=== PATIENT | female | born 1970 | race Caucasian/White ===

== ENCOUNTER 2016-09-24 06:24 | Day surgery (SDC) | payer BC ==
[2016-09-22 17:13] LABS: BASOPHILS 0.2 %; BASOPHILS ABSOLUTE 0.02 10/3/uL (0.0-0.16); EOSINOPHILS 2.7 %; EOSINOPHILS ABSOLUTE 0.22 10/3/uL (0.0-0.53); HEMOGLOBIN 14.5 g/dL (12.0-16.0); IMMATURE GRANULOCYTES 0.2 %; IMMATURE GRANULOCYTES ABSOLUTE 0.02 10/3/uL (0.0-0.11); LYMPHOCYTES 27.3 %; MEAN CORPUSCULAR VOLUME 91.1 fL (80-100); MEAN PLATELET VOLUME 8.8 fL (9.2-13.0); MONOCYTES 11.5 %; MONOCYTES ABSOLUTE 0.93 10/3/uL (0.21-1.20); NEUTROPHILS 58.1 %; NEUTROPHILS ABSOLUTE 4.68 10/3/uL (2.02-8.40); PLATELET COUNT 339 10/3/uL (150-400); RBC DISTRIBUTION WIDTH 12.3 % (12.0-16.0); RED CELL COUNT 4.83 10/6/uL (4.0-5.6); WHITE BLOOD CELLS 8.1 10/3/uL (4.5-10.5)
[2016-09-22 17:16] LABS: MANUAL DIFF NO %
[2016-09-22 17:26] LABS: CALCIUM, SERUM 8.3 MG/DL (8.5-10.4); CHLORIDE, SERUM 104 MMOL/L (96-112); CO2 (CARBON DIOXIDE) 27 MMOL/L (24-34); CREATININE 0.75 MG/DL (0.55-1.02); GFR AFRICAN AMERICAN 111 ML/MIN (>=60); GFR NON AFRICAN AMERICAN 96 ML/MIN (>=60); SODIUM, SERUM 140 MMOL/L (135-148)
[2016-09-22 17:28] LABS: BUN (BLOOD UREA NITROGEN) 14 MG/DL (6-23); GLUCOSE, SERUM 88 MG/DL (60-99); POTASSIUM, SERUM 3.8 MMOL/L (3.5-5.3)
[2016-09-22 19:34] LABS: ASCORBIC ACID (UR NOT ORDER) NEG (NEG); BILIRUBIN, URINE NEGATIVE (NEG); KETONE, URINE NEGATIVE (NEG); LEUKOCYTE ESTERASE(NOT OR NEG (NEG); WBC (NOT ORDERED) (RFLEX) 1 (0-5)
--- NOTE | ~2016-09-24 | OP ---
Record Of Operation [facility] [address] [place]. [address] NAME: ANIA PEREA : 70 STATUS : [facility]#: [id number] AGE: 46 ADM/REG DATE : 09/24/16 MR#: [id number] REPORT SERV DATE: 10/01/16 DICTATED BY: COLLINS VERDUZCO DATE: 10/01/16 REPORT STATUS : Draft TRANSCRIBED BY: MODL DATE: 10/01/16 DATE OF PROCEDURE: 09/24/2016 PREOPERATIVE DIAGNOSES: Abnormal uterine bleeding and left medial thigh lesion, greater than 4 cm. POSTOPERATIVE DIAGNOSES: Abnormal uterine bleeding and left medial thigh lesion, greater than 4 cm. PROCEDURE: Hysteroscopy, dilation and curettage, CPT code 13884; removal of cutaneous thigh lesion, greater than 4 cm, CPT code 63851. SURGEON: Collins Verduzco MD ANESTHESIA: General. ESTIMATED BLOOD LOSS: Less than 10 mL. FLUIDS: Crystalloid 750 mL. DRAINS: Mo. FINDINGS: A 3.5 cm necrotic ulcerated lesion was noted in the right inner thigh. The patient asked for this to be removed as it was a nonhealing ulcer. She also had abnormal uterine bleeding. She had a hypertrophic endometrium concerning for neoplastic process, but no overt evidence of cancer on the hysteroscopic portion of the examination. PATHOLOGY: Endometrial curettings and right inner thigh cutaneous lesion. COMPLICATIONS: None. POSTOPERATIVE PLAN: Extubated to PACU. DESCRIPTION OF PROCEDURE: After informed consent was signed, the patient was taken to the operating room and placed in a dorsal supine position where adequate general anesthesia was administered. She was then placed in dorsal lithotomy position and Adalid stirrups were prepped and draped in the usual fashion. A Mo catheter was placed. The bladder was then distended with approximately 180 mL of normal saline and using direct ultrasound guidance, the uterine cavity was sounded and the cervix dilated and the hysteroscope was placed through the endocervical canal into the endometrium where there was noted to be evidence of hyperplasia grossly. The hysteroscope was removed, the cervix dilated further, and four quadrant endometrial curettings were performed. This was all done under direct ultrasound guidance. Following the endometrial curettage, a circumferential incision was made around the lesion in question on the right inner thigh. This was then carried down to just beneath the dermal surface and then undermined using Bovie cautery. There was a 4 cm defect noted where the specimen was removed. Hemostasis was rendered and the defect was then closed in Record Of Operation [address] [address] NAME: ANIA PEREA : 70 STATUS : [facility]#: [id number] AGE: 46 ADM/REG DATE : 09/24/16 MR#: [id number] REPORT SERV DATE: 10/01/16 DICTATED BY: COLLINS VERDUZCO DATE: 10/01/16 REPORT STATUS : Draft TRANSCRIBED BY: MODL DATE: 10/01/16 two layers with 2-0 Vicryl suture with a running stitch and 4-0 Monocryl on the dermal layer with Dermabond placed over the top. The patient was placed back in dorsal supine position, awakened, extubated, and sent to the PACU in stable condition. BILL/LOS Collins Verduzco MD / [id number] CC: MD KELSEY Carrizales ALMA S
[~2016-09-24 06:24] MED LIST: CYANO1000T IM; GEODON20 PO; KLONO1 PO; KLOR-CON20 MEQ PO; LAMICTAL10 PO; LEXAPRO20 PO; PRINZIDE1 TA1 PO; SEROQUEL200 MG PO; SINGULAIR1 PO; VALIUM10 MG PO; VITC500 PO; WELLSR150 PO; X5 PO; ZANTAC300 MG PO; ZOVI800 PO
[2016-10-03] MEDS ORDERED: PCET PO (09:13)
== END 2016-09-24 12:24 | disposition home or self-care (01) ==
LOC: SDC 06:24
PROVIDERS: Obstetrics & Gynecology Gynecology
PROC: 0HBHXZX Excision of Right Upper Leg Skin, External Approach, Diagnostic (ICD-10-PCS; 2016-09-24)
PROC: 0UDB8ZX Extraction of Endometrium, Via Natural or Artificial Opening Endoscopic, Diagnostic (ICD-10-PCS; principal; 2016-09-24 07:45)
PROC: 0HQHXZZ Repair Right Upper Leg Skin, External Approach (ICD-10-PCS; 2016-09-24 07:45)
DX: N84.0 Polyp of corpus uteri (principal); L97.119 Non-pressure chronic ulcer of right thigh with unspecified severity; F32.9 Major depressive disorder, single episode, unspecified; J45.909 Unspecified asthma, uncomplicated; F41.9 Anxiety disorder, unspecified; D64.9 Anemia, unspecified; E78.00 Pure hypercholesterolemia, unspecified; K21.9 Gastro-esophageal reflux disease without esophagitis; I10 Essential (primary) hypertension; Z90.89 Acquired absence of other organs; Z90.49 Acquired absence of other specified parts of digestive tract; Z98.890 Other specified postprocedural states; Z88.2 Allergy status to sulfonamides; Z88.5 Allergy status to narcotic agent; Z88.8 Allergy status to other drugs, medicaments and biological substances; Z79.899 Other long term (current) drug therapy
CPT/HCPCS: 71020; 76857; 76998; 80048; 81001; 82962; 84703; 85025; 88305; 93005; A9270-GY; J1885; J2250; J2270; J2405; J3010

== ENCOUNTER 2016-10-08 10:38 | Observation (INO) | payer BC ==
--- NOTE | ~2016-10-08 | OP ---
Record Of Operation [facility] [address] [place]. [address] NAME: ANIA PEREA : 70 STATUS : [facility] PAT#: [id number] AGE: 46 ADM/REG DATE : 10/08/16 MR#: [id number] REPORT SERV DATE: 10/10/16 DICTATED BY: COLLINS VERDUZCO DATE: 10/10/16 REPORT STATUS : Draft TRANSCRIBED BY: MODL DATE: 10/10/16 DATE OF PROCEDURE: 10/08/2016 PREOPERATIVE DIAGNOSIS: Abnormal uterine bleeding refractory to medical management. POSTOPERATIVE DIAGNOSIS: Abnormal uterine bleeding refractory to medical management. PROCEDURE: Robot-assisted laparoscopic hysterectomy with bilateral salpingectomy, CPT code 56324; cystoscopy. ANESTHESIA: General. ESTIMATED BLOOD LOSS: 30 mL. CRYSTALLOID: 2200 mL. URINE OUTPUT: 500 mL. DRAINS: Mo. FINDINGS: Grossly normal-appearing uterus, fallopian tubes, and ovaries. No peritoneal deformities noted. PATHOLOGY: Uterus, uterine cervix, bilateral fallopian tubes. COMPLICATIONS: None. POSTOPERATIVE PLAN: Extubated to PACU. PROCEDURE IN DETAIL: After informed consent was signed, the patient was taken the operating room and placed in dorsal supine position, where adequate general anesthesia was administered. She was then placed in dorsal lithotomy position in Adalid stirrups, and prepped and draped in usual fashion. A Mo catheter was placed. Uterus sounded, cervix dilated, and the SILVANO uterine manipulator was assembled and deployed. A midline incision was made with a scalpel and carried down to the fascia, which was incised, muscle , posterior sheath entered sharply, trocar placed, and abdomen insufflated with CO2 gas. Additional robot trocars were placed in the supraumbilical region and retail store assistant port placed in the left upper quadrant, all under direct visualization. The patient was placed in steep Trendelenburg and the robot docked in usual fashion. Bilateral round ligaments were taken with bipolar cautery, transected with monopolar scissors, and the pelvic peritoneum was taken down lateral and parallel to the infundibulopelvic ligaments. With the ureters identified and reflected medially, clips were placed in the origins of the uterine arteries bilaterally. The mesosalpinx was taken bilaterally with monopolar scissors up to the level of the uterine cornua, and then the fallopian tubes were transected at this location. There was one area on the distal left fallopian tube that looked hyperemic. Frozen section diagnosis was benign. The utero-ovarian ligaments were then taken with bipolar cautery, Record Of Operation [facility] [address] [facility] [place]. [address] NAME: ANIA PEREA : 70 STATUS : [facility] PAT#: [id number] AGE: 46 ADM/REG DATE : 10/08/16 MR#: [id number] REPORT SERV DATE: 10/10/16 DICTATED BY: COLLINS VERDUZCO DATE: 10/10/16 REPORT STATUS : Draft TRANSCRIBED BY: MODL DATE: 10/10/16 transected with monopolar scissors, and the ovaries placed into the upper pelvis. The posterior colpotomy was made with monopolar scissors. Next, the vesicouterine peritoneum was then incised and the bladder taken down well beneath the level of the anterior MARTÍN ring and the anterior colpotomy was made. The uterine vessels were then taken at the cervix with bipolar cautery, transected with monopolar scissors, and the parametria reflected off the cervical stroma. The anterior and posterior colpotomies were then connected and the uterus, uterine cervix was then brought out through the vagina. The vagina was then closed with 0 180 V-Loc suture with a running stitch. The pelvis was irrigated and cleared of all clots and debris. Excellent hemostasis was noted. Both ovaries were then sutured to the bilateral pelvic sidewall, peritoneum with 3-0 PDS suture. Care was taken to ensure the linearity of the ovarian blood supply. All instruments were then removed from the abdomen. The robot was undocked and CO2 gas evacuated. The Mo catheter was removed and the cystoscope placed through the urethra, and the bladder was distended with appropriate media. Bilateral brisk ureteral jets were noted suggesting bilateral ureteral patency. The cystoscope was removed and the bladder drained. CO2 gas was then reintroduced into the abdomen, and using the laparoscope, the pelvis was re-examined and found to be hemostatic. The laparoscope and all trocars were then removed from the abdomen and CO2 gas evacuated. The fascia from the supraumbilical incision and the left upper quadrant incision were closed with 0 Vicryl suture, and the skin from all trocar sites was closed with 4-0 Monocryl and Dermabond. The patient tolerated the procedure well, was awakened, extubated, and sent to the PACU in stable condition. Appropriate antibiotics were given prior to the start of procedure. TB/MODL Collins Verduzco MD / [id number] CC: Collins Verduzco MD
[~2016-10-08 10:38] MED LIST changes: +PCET PO
[2016-10-08 19:05] LABS: A/G RATIO 0.9 (0.7-1.9); ALBUMIN 3.4 G/DL (3.5-5.0); BUN (BLOOD UREA NITROGEN) 12 MG/DL (6-23); CALCIUM, SERUM 8.4 MG/DL (8.5-10.4); CHLORIDE, SERUM 102 MMOL/L (96-112); CO2 (CARBON DIOXIDE) 25 MMOL/L (24-34); CREATININE 0.93 MG/DL (0.55-1.02); GFR AFRICAN AMERICAN 85 ML/MIN (>=60); GFR NON AFRICAN AMERICAN 74 ML/MIN (>=60); GLOBULIN 3.7 G/DL (2.5-4.1); POTASSIUM, SERUM 4.2 MMOL/L (3.5-5.3); SGOT(AST) 21 U/L (5-40); SGPT(ALT) 30 U/L (5-65); SODIUM, SERUM 138 MMOL/L (135-148); TOTAL BILIRUBIN 0.3 MG/DL (0-1.2); TOTAL PROTEIN 7.1 G/DL (6.0-8.5)
[2016-10-08 19:06] LABS: ALKALINE PHOSPHATASE 88 U/L (45-117); GLUCOSE, SERUM 157 MG/DL (60-99)
[2016-10-09 06:21] LABS: BASOPHILS 0.1 %; BASOPHILS ABSOLUTE 0.01 10/3/uL (0.0-0.16); EOSINOPHILS 0 %; IMMATURE GRANULOCYTES 0.3 %; IMMATURE GRANULOCYTES ABSOLUTE 0.05 10/3/uL (0.0-0.11); LYMPHOCYTES 5.8 %; LYMPHOCYTES ABSOLUTE 0.92 10/3/uL (0.67-4.30); MEAN CORPUS HGB CONC 33.4 g/dL (32.0-36.0); MEAN CORPUSCULAR HEMOGLOB 31.1 pg (26.0-34.0); MEAN CORPUSCULAR VOLUME 93.1 fL (80-100); MEAN PLATELET VOLUME 8.8 fL (9.2-13.0); MONOCYTES 5.4 %; MONOCYTES ABSOLUTE 0.86 10/3/uL (0.21-1.20); NEUTROPHILS 88.4 %; NEUTROPHILS ABSOLUTE 13.94 10/3/uL (2.02-8.40); PLATELET COUNT 257 10/3/uL (150-400); RBC DISTRIBUTION WIDTH 12.3 % (12.0-16.0); RED CELL COUNT 4.18 10/6/uL (4.0-5.6)
[2016-10-09 06:24] LABS: HEMATOCRIT 38.9 % (36.0-48.0); MANUAL DIFF NO %; WHITE BLOOD CELLS 15.8 10/3/uL (4.5-10.5)
[2016-10-09 06:41] LABS: BUN (BLOOD UREA NITROGEN) 9 MG/DL (6-23); CALCIUM, SERUM 8.1 MG/DL (8.5-10.4); CHLORIDE, SERUM 105 MMOL/L (96-112); CO2 (CARBON DIOXIDE) 25 MMOL/L (24-34); CREATININE 0.89 MG/DL (0.55-1.02); GFR AFRICAN AMERICAN 90 ML/MIN (>=60); GFR NON AFRICAN AMERICAN 78 ML/MIN (>=60); GLUCOSE, SERUM 133 MG/DL (60-99); POTASSIUM, SERUM 4.9 MMOL/L (3.5-5.3); SODIUM, SERUM 139 MMOL/L (135-148)
[2016-10-09] MEDS ORDERED: BIST PO (09:09)
== END 2016-10-09 12:20 | disposition home or self-care (01) ==
LOC: SDC 10:38 → SDC/OF 15:03 → 4EA 16:09
PROVIDERS: Obstetrics & Gynecology Gynecology
PROC: 0UT24ZZ Resection of Bilateral Ovaries, Percutaneous Endoscopic Approach (ICD-10-PCS; 2016-10-08)
PROC: 0UT74ZZ Resection of Bilateral Fallopian Tubes, Percutaneous Endoscopic Approach (ICD-10-PCS; 2016-10-08)
PROC: 0UT94ZZ Resection of Uterus, Percutaneous Endoscopic Approach (ICD-10-PCS; principal; 2016-10-08 10:45)
PROC: 0UTC4ZZ Resection of Cervix, Percutaneous Endoscopic Approach (ICD-10-PCS; 2016-10-08 10:45)
DX: N72 Inflammatory disease of cervix uteri (principal); N80.0 Endometriosis of uterus; N83.8 Other noninflammatory disorders of ovary, fallopian tube and broad ligament; I10 Essential (primary) hypertension; K21.9 Gastro-esophageal reflux disease without esophagitis; E78.00 Pure hypercholesterolemia, unspecified; E78.5 Hyperlipidemia, unspecified; G47.33 Obstructive sleep apnea (adult) (pediatric); F41.9 Anxiety disorder, unspecified; F31.9 Bipolar disorder, unspecified; D64.9 Anemia, unspecified; Z90.49 Acquired absence of other specified parts of digestive tract; Z98.890 Other specified postprocedural states; Z95.1 Presence of aortocoronary bypass graft; Z88.2 Allergy status to sulfonamides; Z88.5 Allergy status to narcotic agent; Z88.8 Allergy status to other drugs, medicaments and biological substances
CPT/HCPCS: 36415; 80048; 80053; 82962; 84703; 85025; 86850; 86900; 86901; 88305; 88307; 88331; 96374; 96375; 96376; A9270-GY; C1729; G0378; J0694; J2405; J2550; J2710; J3010